=== PATIENT | female | born 1940 | race Caucasian/White ===

== ENCOUNTER 2016-10-20 14:11 | Inpatient (IN) | payer MEDICARE ==
[~2016-10-20] VITALS: Ht 167.6 cm; Wt 84.8 kg
--- NOTE | ~2016-10-20 | OR ---
ADMIT: 10/20/2016 RM/LOC: 533 [facility] MR#: [id number] [facility]#: [id number] [address] [address] JAISON WAYNE [address] [place] [address] Operative/Delivery Room Report SEX: F AGE: 76 : 1940 SURGERY DATE: 10/21/2016 SURGEON: Daina Tran MD PREOPERATIVE DIAGNOSIS: Displaced left femoral neck fracture. POSTOPERATIVE DIAGNOSIS: Displaced left femoral neck fracture. PROCEDURE: Left hip bipolar hemiarthroplasty. ASSISTED BY: ANNA Palomino ANESTHESIA: General. ESTIMATED BLOOD LOSS: 100 mL. COMPLICATIONS: None. SPECIMEN: Bone. COMPONENTS: DePuy #5 press-fit femoral stem, a 44 mm bipolar head, +5 neck length. DESCRIPTION OF PROCEDURE: This patient was brought to the operating room. After satisfactory level anesthesia was achieved, she was positioned on the operative table in a right lateral decubitus position. All bony prominences were well padded and the patient's left hip was then circumferentially prepped and draped in the usual sterile fashion. Standard posterior approach to the hip was made carrying my skin incision through a very deep subcutaneous layer. The iliotibial band was opened distal to the trochanter. Then, my incision was carried up to the tip of the trochanter and then the gluteus nicanor fibers were then bluntly split posteriorly. Retractor was placed deep to this. The posterior edge of the gluteus medius was then elevated. The piriformis tendon was released from the piriformis fossa, and a capsular incision made just beneath the piriformis tendon. The external rotators were then removed from the greater trochanter using subperiosteal dissection and then this large flap of soft tissue was retracted posteriorly for later closure. The femoral head was then removed from the acetabulum, it measured 44 mm. I then opened the piriformis fossa with a step drill, used a canal finder and then later a lateralizing reamer. I then reamed distally up to a #5. I then made my femoral neck cut and used broaches up to a #5. A #5 was very tight within the canal and with a +5 neck length, I restored her soft tissue tension. The patient had very good range of motion and stability of ADMIT: 10/20/2016 RM/LOC: 533 [facility] MR#: [id number] 2620 [facility] [address] [place] [id number] ROSANAJAISON Aguero [address] [place] [address] Operative/Delivery Room Report SEX: F AGE: 76 : 1940 the hip. All trial components were then removed. The wound was thoroughly irrigated, and I then seated the #5 press-fit stem. I assembled the bipolar head, impacted that onto the femoral stem and reduced the hip. Once again, she had full range of motion. No instability either anteriorly or posteriorly. Using #5 Ethibond suture, I then repaired the posterior joint capsule and with #5 Ethibond, I then repaired the piriformis tendon through bone tunnels in the trochanter. The iliotibial band and gluteus nicanor fascia were closed with interrupted #1 Vicryl and running #2 Quill suture. The subcutaneous tissue which was quite deep was then closed in multiple layers of 2-0 Vicryl, and the skin with prerna. A sterile dressing was applied and she was then transferred from the operative suite in stable condition. Daina Tran MD/ alfredo JOB #: [id number] CC: Nicolas Good, Attending Physician Nicolas Good, Family Physician
--- NOTE | 2016-10-21 08:07 | HP ---
ADMIT: 10/20/2016 RM/LOC: 533 [facility] MR#: [id number] 2620 [facility] [address] [place] [phone] JAISON SRINIVASAN [address] [place] [address] History and Physical SEX: F AGE: 76 : 1940 DATE OF SERVICE: CHIEF COMPLAINT: "I fell last night and broke my hip." HISTORY OF PRESENT ILLNESS: Mrs. Srinivasan is a delightful 76-year-old, woman, who was visiting here from [place], [place], taking care of her late brother's estate. She is staying with her son. She states that she turned and slipped on the wood floor last night and fell on her left hip. She states "I knew something had happened, it did really hurt." Then elected to have her son help her get up and her son and grandson help her get into the bedroom. She states "I just was trying to be optimistic." She could not bear any weight. She was actually quite comfortable through the night and states she slept reasonably well. However, this morning, when she attempted to get out of bed and bear weight, she could not do it because of pain. She was then brought to the emergency room where x-ray of her pelvis and hip showed a left femoral neck fracture that is impacted and mildly displaced. She has also already been seen by the orthopedist and they are planning a bipolar replacement for her tomorrow. We were asked to admit her and see her for her medical care. PAST MEDICAL HISTORY: Childhood and early development apparently normal. The patient denies any serious childhood illnesses, except she "might have had a slight case of polio." She denies any chronic illnesses. She has never had any previous operations. CURRENT MEDICATIONS: Include aspirin 81 mg daily and no other medications or supplements. ALLERGIES: THERE ARE NO ALLERGIES REPORTED TO FOOD OR MEDICATION. FAMILY HISTORY: Noncontributory. SOCIAL HISTORY: Shows that she smokes half a pack of cigarettes per day and has 4 to 5 alcoholic beverages per week. She lives with her daughter in their home in [place], [place], so she will have help when she gets back home. REVIEW OF SYSTEMS: Times 10 points is negative otherwise. She is a G2, P2. PHYSICAL EXAMINATION: GENERAL: She is alert, lying quietly in bed. Denies any severe pain. She looks comfortable. VITAL SIGNS: Her blood pressures have been in the 160s/110s since admission with a pulse of about 90 (EKG shows sinus tachycardia with possible left axis, left atrial enlargement, but otherwise is normal). HEENT: Negative. NECK: Supple. No bruits. No thyromegaly. LUNGS: Clear to auscultation. CARDIAC: Shows regular without murmur. ABDOMEN: Soft. No masses, tenderness, or organomegaly. GENITAL/RECTAL: Exam was not done. ADMIT: 10/20/2016 RM/LOC: 533 [facility] MR#: [id number] [address] [place] [phone] JAISON SRINIVASAN [address] [place] [address] History and Physical SEX: F AGE: 76 : 1940 EXTREMITIES: Lower extremities show good pulses. No edema. I did not attempt any motion of her lower extremities. NEUROLOGIC: Normal within her ability to test. IMPRESSION: 1. Left femoral neck fracture. 2. Low level tobacco abuse. 3. Probable systemic hypertension. PLAN: We will start her on some Vasotec for hypertension tonight and then Dyazide in the a.m. plus Vasotec at bedtime. Her chest x-ray is normal. General lab exams are normal. As noted, EKG is basically normal. So, I think it is fine to proceed with her bipolar hip replacement tomorrow. I anticipate she will do well with that. She seems highly motivated. We will start with some Lovenox initially subcu and then probably dismiss her on Eliquis. I have reviewed this with her, and I think she is comfortable with this approach. Nicolas Good MD/ alfredo JOB #: [id number] CC: Nicolas Good, Attending Physician Nicolas Good, Family Physician
--- NOTE | 2016-10-23 16:46 | ER ---
ADMIT: 10/20/2016 RM/LOC: 533 [facility] MR#: [id number] 2620 [facility] [address] [place] [phone] JAISON WAYNE [address] [place] [address] Emergency Room Report SEX: F AGE: 76 : 1940 DATE: 10/20/2016 HISTORY OF PRESENT ILLNESS: The patient is a 76-year-old from out of town, who came to visit her brother's family and settle his state. She is complaining of left leg pain. Apparently, she last night tripped and injured her left hip. Today, she comes in because of the pain and there is discomfort in her left upper thigh as well. PAST MEDICAL HISTORY: She has had a TIA, but essentially negative. Her blood pressure is elevated today, which she says is due to the stress that she is on in the last few weeks, and now this injury which she says she needs to go back to [place], but with this she will not be able to any sooner. MEDICATIONS: She takes; 1. Aspirin. 2. Fish oil. SOCIAL HISTORY: She smokes a 3rd of a pack and drinks alcohol occasionally. PHYSICAL EXAMINATION: VITAL SIGNS: Blood pressure 179/103 with a heart rate of 118, respirations 16, temp is 99.8, O2 sats 97%. GENERAL: She is alert, moderately anxious, very pleasant and articulate. HEENT: Normal inspection. Head is normocephalic and atraumatic. NECK: Supple. RESPIRATIONS: No distress. ABDOMEN: Nontender. NEUROLOGIC: Oriented x4. Mood and affect appropriate. Sensation is intact as well as motor. SKIN: Good color and turgor. EXTREMITIES: Externally rotated left leg and shortened, otherwise, no edema noted. LABORATORY DATA: Hemoglobin 16.6, WBC 9.3, platelet count 197. EKG within normal limits. Chest x-ray within normal limits. No pathology. CLINICAL IMPRESSION: Left femoral neck fracture, secondary to fall. X-ray does show a fracture. Dr. Good was contacted at 1515 hours, city call admission Dr. Tran at 1526 hours, consultation. Orders received for admission. The patient has been kept comfortable with an IV, Zofran, and Dilaudid 0.5. The patient awaiting room assignment. ANNA Loya / Jeovany Rhoades MD / alfredo JOB #: [id number] CC: Nicolas Good MD, Attending Physician Nicolas Good MD, Family Physician
--- NOTE | 2016-10-28 08:12 | DS ---
ADMIT: 10/20/2016 RM/LOC: 533 [facility] MR#: [id number] 2620 [facility] [address] [place] [phone] JAISON WAYNE [address] [place] [address] General Discharge Summary SEX: F AGE: 76 : 1940 ADMISSION DATE: 10/20/2016 DISCHARGE DATE: 10/23/2016 FINAL DIAGNOSES: 1. Left femoral neck fracture. 2. Low level tobacco abuse. 3. Probable systemic hypertension. 4. Vitamin D deficiency. BRIEF HISTORY: This 76-year-old, woman is visiting here from [place], [place] taking care of her late brother's estate. She stated she turned and slipped on a wet floor last night and fell on her left hip. She also states "I knew something had happened and it really did hurt." She elected to have her son help her get up and her son and grandson got her to the bedroom. She stated "I was just trying to be optimistic." She could not bear any weight. She was actually comfortable through the night and states that she slept reasonably well. However in the morning of admission, she attempted to get out of bed and bear weight and could not do it because of pain. She was then brought to the emergency room where x-ray of the pelvis and hip showed a left femoral neck fracture that was impacted and mildly displaced. She was admitted for further evaluation and treatment. SIGNIFICANT LAB AND X-RAY ON ADMISSION: CBC showed a hemoglobin of 16.6 with mildly macrocytic indices. Platelets were 197,000, white count was 9300. Serial hemoglobins were followed, and by 10/23, her hemoglobin was 12.4 with a hematocrit 36.8. Protime and PTT on admission were normal. On admission, CMP was normal, but for a glucose of 122 mg/dL. Serial chemistries were followed, and by 10/22, her BMP was normal but for a glucose of 118 mg/dL and calcium of 8.1 mg/dL. On 10/22, vitamin D2 level was less than 4 ng/mL, vitamin D3 level was 14.2 (normal 24 to 80) with a total of 14.2. The patient's blood type is B Rh negative with a negative antibody screen. Chest x-ray on admission showed "mild left basilar atelectasis and/or scarring. Otherwise negative study. Normal cardiac size without CHF identified." X-ray of her hip on admission showed "acute, mildly impacted fracture involving left femoral neck without significant displacement identified. No dislocation identified." On 10/21, x-ray in the OR showed "placement of left hip arthroplasty." On 10/22, chest x-ray was read as "improved aeration of the left lung base. ADMIT: 10/20/2016 RM/LOC: 533 [facility] MR#: [id number] [address] [place] [id number] General Discharge Summary SEX: F AGE: 76 : 1940 No acute findings with this followup study." EKG on admission showed sinus tachycardia and was normal except for rate. Repeat EKG on 10/23, showed sinus tachycardia with anterior T-wave abnormality nonspecific compared to 10/20/2016, no significant changes." On 10/20, she underwent a left hip bipolar hemiarthroplasty by Dr. Tran. HOSPITAL COURSE: The patient was admitted through the emergency room, and the imaging and laboratory studies outlined above were begun. She was placed on routine MedSurg orders. She was allowed diet as tolerated and kept n.p.o. after midnight. IV of 50 mL normal saline per hour was started. She was given Dilaudid 0.5 to 1.0 mg q.4-6 hours p.r.n. pain and Zofran for nausea. Routine preop hip fracture orders for Dr. Tran were followed. She was placed on Lovenox 40 mg subcu q.24 hours starting 12 hours postop. Her blood pressures on admission were moderately elevated. On the evening of 10/20, she was started on Dyazide 37.5/25, one q.a.m. and Vasotec 2.5 mg one that evening and then at bedtime. By 10/21, she underwent her operation as outlined above. Lovenox was discontinued. Xarelto 10 mg daily was started 12 hours postop. Her aspirin was stopped while she is on Xarelto. Social Service consult was held about out of hospital cares. She was seen preoperatively by Anesthesia. By 10/22 (postop day 1), she is alert, maximum temp was 100.2. Chest x-ray was repeated. Vitamin D level was initiated. She was seen by Social Service and was felt she might be a candidate for IRU. By 10/23 (postop day 2), maximum temp was 100.7, she was clinically stable, but her blood pressures were still on the 135 to 155 range with a pulse 100- 115. Atenolol 25 mg p.o. b.i.d. was added. Later that day, she was transferred to inpatient rehab. Arrangements were made for followup with Orthopedics. DISCHARGE MEDICATIONS: On dismissal, her medications included: 1. Maxzide 25, one daily. 2. Senokot S 1 tab b.i.d. 3. Vasotec 2.5 mg at bedtime. 4. Xarelto 10 mg q.24 hours x30 days. 5. Dulcolax 10 mg suppository at bedtime p.r.n. Other p.r.n. orders for: 1. Benadryl. 2. Colace. ADMIT: 10/20/2016 RM/LOC: 533 [facility] MR#: [id number] 2620 [facility] [address] [place] [phone] JAISON WAYNE [address] [place] [address] General Discharge Summary SEX: F AGE: 76 : 1940 3. Compazine. 4. Hydrocodone 10. 5. Milk of mag. 6. Maalox. 7. Tylenol. 8. Fleet Enema. CONDITION ON TRANSFER: Stable on the above treatment. FINAL DISPOSITION: As noted. PROGNOSIS: Good. Nicolas Good MD/ alfredo JOB #: [id number] CC: Nicolas Good MD, Attending Physician Nicolas Good MD, Family Physician
[2016-11-06] MEDS ORDERED: TENORMIN-DPS25 MG PO (13:55)
[2016-11-06] MEDS ORDERED: OYSTER SHELL C500 MG PO (13:55)
[2016-11-06] MEDS ORDERED: VASOTEC DPS2.5 MG PO (13:56)
[2016-11-06] MEDS ORDERED: VITAMIN D35000 UNI1 PO (13:56)
[2016-11-06] MEDS ORDERED: VITAMIN B-121000 MCG PO (14:06)
[2016-11-06] MEDS ORDERED: VOLTAREN 1% GE100 GM TP (14:07)
[2016-11-06] MEDS ORDERED: XARELTO10 MG PO (14:07)
[2016-11-06] MEDS ORDERED: TYLENOL DPS325 MG PO (14:07)
[2016-11-06] MEDS ORDERED: ULTRAM DPS50 MG PO (14:07)
[2016-11-06] MEDS ORDERED: ASA CHILDREN'S81 MG PO (14:08)
[2016-11-06] MEDS ORDERED: MIRALAX PACKET17 GM PO (14:08)
--- NOTE | 2016-11-10 11:55 | CO ---
ADMIT: 10/20/2016 RM/LOC: 533 [facility] MR#: [id number] 2620 [facility] [address] [place] [phone] JAISON WAYNE [address] [place] [address] Consultation Report SEX: F AGE: 76 : 1940 DATE OF CONSULTATION: 10/20/2016 ATTENDING PHYSICIAN: Nicolas Good CONSULTING PHYSICIAN: Daina Tran MD CHIEF COMPLAINT: Left hip pain. HISTORY OF PRESENT ILLNESS: A 76-year-old female. She is up here in town helping take care of her brother's estate when she fell, could not bear any weight on it with the help of family members, still having issues once they got her to the bed side, so they decided to bring into the ER, and x-rays on the hip showing a left femoral neck fracture. She lives in [place], but as stated previously, she is here dealing with some family issues and brother's estate issues, so she will be here for approximately a month even before the fracture happened. ALLERGENS: No known allergies. MEDICATIONS: Aspirin 81 mg. PAST MEDICAL HISTORY: Denies any chronic illnesses. PAST SURGICAL HISTORY: No previous operations. FAMILY HISTORY: Not pertinent. SOCIAL HISTORY: The patient right now lives in [place], is up here helping out with family issues for brother's estate. REVIEW OF SYSTEMS: Complete review of systems was reviewed and negative besides stated in the HPI. PHYSICAL EXAMINATION: GENERAL: This is a healthy-appearing female, comfortably lying in bed, in no apparent distress. Alert and oriented. MUSCULOSKELETAL: Physical exam of the left lower extremity does show that it is slightly shortened and externally rotated. There really not much of tenderness to palpation anywhere along the hip range of motion. Range of motion of the hip does cause some tenderness. States there is also some pain radiating distally to the knee, but otherwise no real bruising or swelling noted. IMAGING: Three-view x-ray of the hip shows a left complete femoral neck fracture. ADMIT: 10/20/2016 RM/LOC: 533 [facility] MR#: [id number] [address] [address] JAISON WAYNE [address] [place] [address] Consultation Report SEX: F AGE: 76 : 1940 ASSESSMENT: Left femoral neck fracture PLAN: At this time, treatment options were discussed with the patient, and left bipolar hemiarthroplasty was decided upon as being the best treatment option. Risks, benefits, and alternatives of this procedure were discussed with the patient. Questions were also answered with the patient. At this time after discussing the procedure with the patient, she understands the complications and outcomes that are possible, and she still wishes to proceed with the procedure. Right now, she is medically cleared for surgery. We plan on doing a left bipolar hemiarthroplasty with Dr. Tran, on 10/21/2016, in the afternoon. All of their questions were answered at this time. ANNA Palomino / Daina Tran MD / alfredo JOB #: [id number] CC: Nicolas Good, Attending Physician Nicolas Good, Family Physician
== END 2016-10-23 11:30 | disposition short-term general hospital (02) | DRG 470 ==
LOC: ER 14:11 → 5MS 15:15
PROVIDERS: ADMIT Family Medicine
PROC: 0SRS01A Replacement of Left Hip Joint, Femoral Surface with Metal Synthetic Substitute, Uncemented, Open Approach (ICD-10-PCS; principal; 2016-10-21)
DX: S72.002A Fracture of unspecified part of neck of left femur, initial encounter for closed fracture (principal); I10 Essential (primary) hypertension; W18.30XA Fall on same level, unspecified, initial encounter; Y92.009 Unspecified place in unspecified non-institutional (private) residence as the place of occurrence of the external cause; F17.210 Nicotine dependence, cigarettes, uncomplicated; Z79.82 Long term (current) use of aspirin; Z86.73 Personal history of transient ischemic attack (TIA), and cerebral infarction without residual deficits